=== PATIENT | female | born 1985 | race Caucasian/White ===

== ENCOUNTER 2017-02-22 11:51 | Emergency (ER) | payer OTHER ==
[~2017-02-22] VITALS: Ht 160 cm; Wt 68.0 kg
[~2017-02-22 11:51] MED LIST: ADVAIR 1001 DISK W/D PO; ALBUTEROL17 G1; ALBUTEROL17 GM INH; AMOXICILLIN PO; AMOXICILLIN500 M1 PO; AURALGAN EAR DR14 ML AS; BACTRIM DS TABL1 TA1 PO; BACTRIM DS TABL1 TAB PO; CELEXA PO; CIPRO PO; DIFLUCAN PO; FLEXERIL PO; FLEXERIL10 M1 PO; IBUPROFEN PO; KEFLEX500 MG PO; KETOPROFEN PO; NO MEDICATIONS; ORUDIS75 M1 PO; PEN-VEE K PO; PHENERGAN PO; PREDNISONE PO; PREDNISONE50 MG PO; PRENATAL TABLET1 TA1 PO; PROZAC PO; PYRIDIUM PO; ROBITUSSIN A-C-S1 ML PO; ROBITUSSIN DM118 ML PO; ULTRAM PO; VIBRAMYCIN100 M1 PO; ZITHROMAX PO; ZYRTEC10 M2 PO
== END 2017-02-22 14:10 | disposition home or self-care (01) ==
LOC: CED 11:51
DX: M54.12 Radiculopathy, cervical region (principal); J45.909 Unspecified asthma, uncomplicated; F17.210 Nicotine dependence, cigarettes, uncomplicated; Z98.890 Other specified postprocedural states; Z91.040 Latex allergy status; Z88.8 Allergy status to other drugs, medicaments and biological substances
CPT/HCPCS: 96372; 99283; J1885